=== PATIENT | male | born 1985 | race Caucasian/White ===

== ENCOUNTER 2017-04-28 10:49 | Emergency (ER) | payer MEDICAID ==
[~2017-04-28] VITALS: Ht 177.8 cm; Wt 93.7 kg
[2017-04-28 10:52] VITALS: Ht 177.8 cm; Wt 93.7 kg
[2017-04-28] MEDS ORDERED: IBUPROFEN 800 MG TAB PO ONE (12:00)
--- NOTE | 2017-04-28 12:08 | RADRPT ---
PROCEDURE: XR Shoulder. CLINICAL INDICATION: Fall TECHNIQUE: Three views of the left shoulder are available for review. COMPARISON: None available FINDINGS: The humeral head is located. The AC joint is maintained. There is no acute osseous or articular abn ormality. No evidence for fracture. The visualized portions of the left lung are clear. . IMPRESSION: 1. Normal left shoulder x-ray series. 2. No acute fracture or dislocation is seen. RPTAT: RR .Wagner Pang MD, Date Time Electronically viewed and signed by .Wagner Pang MD, MD on 04/28/2017 12:08 .d/
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
[2017-04-28] MEDS ORDERED: NAPR-260 PO (12:19)
[2017-04-28] MEDS ORDERED: ACET500C5 PO (12:20)
== END 2017-04-28 12:52 | disposition home or self-care (01) ==
LOC: FTE 10:49
DX: S49.92XA Unspecified injury of left shoulder and upper arm, initial encounter (principal); X58.XXXA Exposure to other specified factors, initial encounter; Y92.9 Unspecified place or not applicable
CPT/HCPCS: 73030; Z7502; Z7610

== ENCOUNTER 2018-05-20 18:56 | Emergency (ER) | END 2018-05-20 21:57 | disposition home or self-care (01) ==